=== PATIENT | male | born 1980 | race African-American/Black ===

== ENCOUNTER 2018-09-17 09:17 | Emergency (ER) | payer BC ==
[~2018-09-17] VITALS: Ht 175.3 cm; Wt 81.6 kg
[2018-09-17 09:27] VITALS: BP 127/95
[2018-09-17] MEDS ORDERED: CEPH-264 PO (09:44)
--- NOTE | 2018-09-17 09:44 | PHYS DOC ---
Past Medical History Past Medical History: No Pertinent History Past Surgical History: No Surgical History Alcohol Use: None Drug Use: Marijuana Adult General Chief Complaint Chief Complaint: THUMB HPI HPI Patient is a 37 year old male who presents to the ER after cutting his 1st digit on his right hand. The patient states that 10:00 last night he was cutting food with a knife and filleted the distal pad of the first digit. Not taking any medication prior to arrival and states his pain level is 8 out of 10 in severity. The patient states his thumb is throbbing. Other complaints at this time. The patient states his tetanus shot is not updated. Review of Systems Review of Systems Constitutional: Denies fever or chills [] Eyes: Denies change in visual acuity, redness, or eye pain [] HENT: Denies nasal congestion or sore throat [] Respiratory: Denies cough or shortness of breath [] Cardiovascular: No additional information not addressed in HPI [] GI: Denies abdominal pain, nausea, vomiting, bloody stools or diarrhea [] : Denies dysuria or hematuria [] Musculoskeletal: Denies back pain or joint pain [] Integument: Denies rash. Has laceration to thumb. Neurologic: Denies headache, focal weakness or sensory changes [] Endocrine: Denies polyuria or polydipsia [] Complete systems were reviewed and found to be within normal limits, except as documented in this note. Physical Exam Physical Exam Constitutional: Well developed, well nourished, no acute distress, non-toxic appearance. [] HENT: Normocephalic, atraumatic, bilateral external ears normal, oropharynx moist, no oral exudates, nose normal. [] Eyes: PERRLA, EOMI, conjunctiva normal, no discharge. [] Neck: Normal range of motion, no tenderness, supple, no stridor. [] Cardiovascular:Heart rate regular rhythm, no murmur [] Lungs & Thorax: Bilateral breath sounds clear to auscultation [] Abdomen: Bowel sounds normal, soft, no tenderness, no masses, no pulsatile masses. [] Skin: Warm, dry, no erythema, no rash. Has 1 cm laceration to the 1st Digit R hand. Thumb has a 1 cm fillet. Back: No tenderness, no CVA tenderness. [] Extremities: No tenderness, no cyanosis, no clubbing, ROM intact, no edema. [] Neurologic: Alert and oriented X 3, normal motor function, normal sensory function, no focal deficits noted. [] Psychologic: Affect normal, judgement normal, mood normal. [] Current Patient Data Vital Signs Vital Signs Date Time Temp Pulse Resp B/P (MAP) Pulse Ox O2 Delivery O2 Flow Rate FiO2 09/17/18 09:27 97.7 70 20 127/95 (106) 97 Room Air 97.7 EKG EKG [] Radiology/Procedures Radiology/Procedures 1st digit R hand distal portion of thumb debrided with saline, washed with peroxide and then glued. Course & Med Decision Making Course & Med Decision Making Pertinent Labs and Imaging studies reviewed. (See chart for details) Laceration does not appear to be a good candidate for suture due to the thinness of the skin that was filleted. Will glue after wound has been cleaned out. Patient is agreeable to this plan. Toradol given for pain and Tetanus updated. Because it was open for 10 hours. Will send home on Keflex. Dragon Disclaimer Dragon Disclaimer This electronic medical record was generated, in whole or in part, using a voice recognition dictation system. Departure Departure Impression: Primary Impression: Laceration Disposition: HOME, SELF-CARE Condition: STABLE Referrals: ALANA HAWKINS MD (PCP) Patient Instructions: Laceration Care, Adult Additional Instructions: Thank you for visiting [facility]. We appreciate you trusting us with your care. If any additional problems come up don't hesitate to return to visit us. Please follow up with your primary care provider so they can plan additional care if needed and know about the problem that you had. If symptoms worsen come back to the Emergency Department. Any concerning symptoms that start such as chest pain, shortness of Air, weakness or numbness on one side of the body, running high fevers or any other concerning symptoms return to the ER. Please fill your medications at any pharmacy and follow the prescription instructions. You have been prescribed an antibiotic today to help fight your infection. Please take all of the antibiotic as directed. If after 48 hours the infection is not improving, please return for more care. If the infection worsens, return to ER for additional care. Scripts Cephalexin (KEFLEX) 500 Mg Capsule 1 CAP PO BID for 7 Days, #14 CAP Prov: LULU BEE EMPLOYMENT SPECIALIST/PROGRAM MANAGER 09/17/18 LULU BEE APRN Sep 17, 2018 09:44
[2018-09-17] MEDS ORDERED: DIPHTH,PERTUSS(ACELL),TET TOX 0.5 ML DISP.SYRIN. VAX IM ONE ×2 (09:45→09:55)
[2018-09-17] MEDS ORDERED: KETOROLAC 60 MG/2 ML VIAL. IM ONE (09:45)
[2018-09-17] MEDS ORDERED: KETOROLAC 30 MG/ML VIAL. ONE (09:55)
== END 2018-09-17 10:10 | disposition home or self-care (01) ==
LOC: ER 09:17
DX: S61.011A Laceration without foreign body of right thumb without damage to nail, initial encounter (principal); W26.0XXA Contact with knife, initial encounter; Y93.G3 Activity, cooking and baking; Y92.89 Other specified places as the place of occurrence of the external cause; Y99.8 Other external cause status
CPT/HCPCS: 90471; 90715; 96372; 99284; J1885; 99283